=== PATIENT | male | born 1960 | race Caucasian/White ===

== ENCOUNTER 2019-09-25 09:07 | Emergency (ER) | payer OTHER, SELFPAY ==
--- NOTE | 2019-09-25 10:19 | CT ---
CT CERVICAL SPINE WITHOUT CONTRAST: Date: 09/25/2019 HISTORY: Left hand tingling. FINDINGS: Cervical lordosis is maintained. There are mild degenerative changes, most prominent at C6-7 level. N o fracture, subluxation, bony destruction, or facet malalignment is seen. The prevertebral soft tissu es are normal. A disc osteophyte complex is noted, most prominent at C6-7 level. Uncovertebral and fa cet hypertrophic changes are also seen. IMPRESSION: Cervical spondylosis. A MRI would be helpful to better evaluate for disc and cord pathology. POS: [facility]
== END 2019-09-25 10:33 | disposition home or self-care (01) ==
LOC: ERS 09:07
DX: M54.12 Radiculopathy, cervical region (principal); I10 Essential (primary) hypertension
CPT/HCPCS: 72125; 93005